=== PATIENT | male | born 1985 | race American Indian/Alaskan Native ===

== ENCOUNTER 2016-08-31 22:40 | Emergency (ER) | payer MEDICARE ==
[2016-08-31 23:15] VITALS: BMI 21.9
[2016-08-31 23:16] VITALS: PULSE 68; TEMP 97.9
[2016-08-31] MEDS ORDERED: TDAP Vaccine 0.5 mL Syr IM ONE (23:46)
[2016-08-31] MEDS ORDERED: Naproxen 550 mg Tab PO STA (23:46)
[2016-08-31] MEDS ORDERED: Tmp-Smz 800 mg-160 mg DS Tab PO STA (23:46)
--- NOTE | 2016-08-31 23:53 | ED PDOC ---
Arrival/HPI - General Chief Complaint: Bite Time Seen by Provider: 08/31/16 23:28 Historian: Patient - History of Present Illness Narrative History of Present Illness (Text): 08/31/16 23:55 Patient presents to the emergency room after he was bitten by his neighbor's dog on the posterior aspect of his left heel prior to arrival. Denies any numbness, decrease in range of motion, active bleeding, or any other injury. Patient has no other complaints. Of note, as per patient the neighbor's dog is up-to-date with rabies vaccination. Past Medical History - Provider Review Nursing Documentation Reviewed: Yes - Tetanus Immunization Tetanus Immunization: Unknown - Cardiac Hx Cardiac Disorders: No - Pulmonary Hx Respiratory Disorders: No - Neurological Hx Neurological Disorder: No Hx Seizures: Yes - HEENT Hx HEENT Disorder: No - Renal Hx Renal Disorder: No - Endocrine/Metabolic Hx Endocrine Disorders: No - Hematological/Oncological Hx Sickle Cell Disease: Yes - Integumentary Hx Dermatological Disorder: Yes Other/Comment: poison geri - Musculoskeletal/Rheumatological Hx Musculoskeletal Disorders: No - Gastrointestinal Hx Gastrointestinal Disorders: No - Genitourinary/Gynecological Hx Genitourinary Disorders: No - Psychiatric Hx Substance Use: No - Anesthesia Hx Anesthesia: No Family/Social History - Physician Review Nursing Documentation Reviewed: Yes Family/Social History: No Known Family HX Smoking Status: Never Smoked Hx Alcohol Use: No Hx Substance Use: No Allergies/Home Meds Allergies/Adverse Reactions: Allergies Penicillins Allergy (Verified 08/31/16 23:25) RASH phenobarbital Allergy (Verified 08/31/16 23:25) RASH phenytoin [From Dilantin] Allergy (Verified 08/31/16 23:25) RASH Home Medications: Home Meds Medication Instructions Recorded Confirmed Carbamazepine [Carbamazepine ER] 200 mg PO BID 08/31/16 08/31/16 Cholecalciferol (Vitamin D3) 1 tab PO DAILY 08/31/16 08/31/16 [Vitamin D3] Famotidine [Pepcid] 20 mg PO BID 08/31/16 08/31/16 Folic Acid [Folic Acid] 1 mg PO DAILY 08/31/16 08/31/16 Hydroxyurea [Hydrea] 500 mg PO DAILY 08/31/16 08/31/16 Lacosamide [Vimpat] 200 mg PO BID 08/31/16 08/31/16 predniSONE [predniSONE Tab] 10 mg PO DAILY 08/31/16 08/31/16 Review of Systems - Review of Systems Constitutional: Normal. absent: Fatigue, Weight Change, Fevers Musculoskeletal: Normal. absent: Arthralgias, Back Pain, Neck Pain Skin: Normal. absent: Rash, Pruritis, Skin Lesions Physical Exam Vital Signs Temp Pulse Resp BP Pulse Ox 08/31/16 23:16 97.9 F 68 17 122/78 97 Temperature: Afebrile Blood Pressure: Normal Pulse: Regular Respiratory Rate: Normal Appearance: Positive for: Well-Appearing, Non-Toxic, Comfortable Pain Distress: None Mental Status: Positive for: Alert and Oriented X 3 - Systems Exam Lower Extremity: Present: Normal Inspection, NORMAL PULSES, Normal ROM, Neurovascularly Intact, Capillary Refill < 2 s, Other (1 cm abrasion to the heel of the L foot). No: Edema, Tenderness, Swelling, Erythema, Deformity Neurological: Present: GCS=15, CN II-XII Intact Skin: Present: Warm, Dry, Normal Color. No: Rashes Psychiatric: Present: Alert, Oriented x 3 Medical Decision Making ED Course and Treatment: 08/31/16 23:51 31 yo M presents to the ER for dog bite to the L heel. Dog is UTD with rabies. Given naprosyn po, bactrim po, flagyl po and tdap IM. Wound cleaned and dressed. Advised to f/u with pmd after 2 days for wound check and to finish antibiotics. Advised to return to the ER at any time for any new or worsening symptoms. Rx provided. - Medication Orders Current Medication Orders: Metronidazole (Flagyl) 500 mg PO STAT STA PRN Reason: Protocol Stop: 08/31/16 23:49 Naproxen (Anaprox Ds) 550 mg PO ONCE STA Stop: 08/31/16 23:47 Tetanus/Reduced Diphtheria/Acell Pertussis (Boostrix Vaccine Inj) 0.5 ml IM .ONCE ONE Stop: 08/31/16 23:47 Trimethoprim/Sulfamethoxazole (Bactrim Ds Tab) 1 tab PO STAT STA PRN Reason: Protocol Stop: 08/31/16 23:47 - PA / MAPPING SPECIALIST / Resident Statement MD/DO has reviewed & agrees with the documentation as recorded. Disposition/Present on Arrival - Present on Arrival Any Indicators Present on Arrival: No History of DVT/PE: No History of Uncontrolled Diabetes: No Urinary Catheter: No History of Decub. Ulcer: No History Surgical Site Infection Following: None - Disposition Have Diagnosis and Disposition been Completed?: Yes Diagnosis: Dog bite of left foot Disposition: HOME/ ROUTINE Disposition Time: 23:49 Patient Plan: Discharge Condition: GOOD Discharge Instructions (ExitCare): Animal Bite (ED) Print Language: GHANAIAN Additional Instructions: Thank you for letting us take care of you today. You were treated for dog bite. The emergency medical care you received today was directed at your acute symptoms. If you were prescribed any medication, please fill it and take as directed. It may take several days for your symptoms to resolve. Return to the Emergency Department if your symptoms worsen, do not improve, or if you have any other problems. Please contact your doctor in 2 days for re-evaluation and follow up. Bring any paperwork you were given at discharge with you along with any medications you are taking to your follow up visit. Our treatment cannot replace ongoing medical care by a primary care provider (PCP) outside of the emergency department. Thank you for allowing the [facility] hospital team to be part of your care today. Prescriptions: Metronidazole [Flagyl] 500 mg PO TID #21 tab Sulfamethoxazole/Trimethoprim [Bactrim DS 800 mg-160 mg] 1 tab PO BID #14 tab Forms: WORK NOTE
[2016-09-01 00:14] VITALS: BP 132/82; RESP 18; O2SAT 98
== END 2016-09-01 00:13 | disposition home or self-care (01) ==
LOC: ED 22:40
DX: S90.872A Other superficial bite of left foot, initial encounter (principal); W54.0XXA Bitten by dog, initial encounter; Z23 Encounter for immunization

== ENCOUNTER 2017-01-17 18:56 | Emergency (ER) | payer MEDICARE ==
[2017-01-17 19:03] VITALS: BMI 24.3
--- NOTE | 2017-01-17 19:28 | ED PDOC ---
Arrival/HPI - General Chief Complaint: Abnormal Skin Integrity Time Seen by Provider: 01/17/17 19:23 Historian: Patient, Parent (mother) - History of Present Illness Narrative History of Present Illness (Text): 01/17/17 19:23 This 31 yo male with pmh seizures, sickle cell anemia, presents to this Emergency department complaining of 3 abscess on her right axilla x 4 days. Denies similar abscess in the past. Denies fever, streaking erythema, sob, cp, abdominal pain, sick contact, or recent travel. Time/Duration: Other (see hpi) Context: Home Past Medical History - Provider Review Nursing Documentation Reviewed: Yes - Infectious Disease Hx of Infectious Diseases: None - Tetanus Immunization Tetanus Immunization: Unknown - Cardiac Hx Cardiac Disorders: No - Pulmonary Hx Respiratory Disorders: No - Neurological Hx Seizures: Yes - HEENT Hx HEENT Disorder: No - Renal Hx Renal Disorder: No - Endocrine/Metabolic Hx Endocrine Disorders: No - Hematological/Oncological Hx Sickle Cell Disease: Yes - Integumentary Hx Dermatological Disorder: Yes Other/Comment: poison geri - Musculoskeletal/Rheumatological Hx Musculoskeletal Disorders: No - Gastrointestinal Hx Gastrointestinal Disorders: No - Genitourinary/Gynecological Hx Genitourinary Disorders: No - Psychiatric Hx Substance Use: No - Surgical History Other/Comment: L chest port - Anesthesia Hx Anesthesia: Yes Hx Anesthesia Reactions: No Hx Malignant Hyperthermia: No Family/Social History - Physician Review Nursing Documentation Reviewed: Yes Family/Social History: Other (noncontributory) Smoking Status: Never Smoked Hx Alcohol Use: No Hx Substance Use: No Allergies/Home Meds Allergies/Adverse Reactions: Allergies Penicillins Allergy (Verified 01/19/17 18:28) RASH phenobarbital Allergy (Verified 01/19/17 18:28) RASH phenytoin [From Dilantin] Allergy (Verified 01/19/17 18:28) RASH Home Medications: Home Meds Medication Instructions Recorded Confirmed Carbamazepine [Carbamazepine ER] 200 mg PO BID 08/31/16 01/19/17 Famotidine [Pepcid] 20 mg PO BID 08/31/16 01/19/17 Folic Acid [Folic Acid] 1 mg PO DAILY 08/31/16 01/19/17 Hydroxyurea [Hydrea] 3 cap PO DAILY 08/31/16 01/19/17 Lacosamide [Vimpat] 200 mg PO BID 08/31/16 01/19/17 predniSONE [predniSONE Tab] 10 mg PO DAILY 08/31/16 01/19/17 Ibuprofen [Motrin Tab] 1 tab PO Q8H PRN 01/17/17 01/19/17 Pregabalin [Lyrica] 1 cap PO BID 01/17/17 01/19/17 Review of Systems - Review of Systems Constitutional: Normal. absent: Fatigue, Weight Change, Fevers, Night Sweats Eyes: Normal ENT: Normal Respiratory: Normal. absent: SOB, Cough Cardiovascular: Normal. absent: Chest Pain, Palpitations Gastrointestinal: Normal. absent: Abdominal Pain, Nausea, Vomiting Genitourinary Male: Normal. absent: Hematuria Musculoskeletal: Normal. absent: Arthralgias, Back Pain, Neck Pain Skin: Abscess (right axilla). absent: Pruritis, Cellulitis Neurological: Normal. absent: Headache, Dizziness, Gait Changes Endocrine: Normal Hemo/Lymphatic: Normal Psychiatric: Normal. absent: Anxiety, Depression, Suicidal Ideation Physical Exam Vital Signs Pulse Resp BP Pulse Ox 01/17/17 20:45 64 17 127/82 100 01/17/17 19:05 60 17 134/70 97 Temperature: Afebrile Blood Pressure: Normal Pulse: Regular Respiratory Rate: Normal Appearance: Positive for: Well-Appearing, Non-Toxic, Comfortable Pain Distress: None Mental Status: Positive for: Alert and Oriented X 3 - Systems Exam Head: Present: Atraumatic, Normocephalic Pupils: Present: PERRL Extroacular Muscles: Present: EOMI Conjunctiva: Present: Normal Mouth: Present: Moist Mucous Membranes Neck: Present: Normal Range of Motion, Trachea Midline. No: Meningeal Signs, Lymphadenopathy Respiratory/Chest: Present: Clear to Auscultation, Good Air Exchange. No: Respiratory Distress, Accessory Muscle Use, Wheezes, Rales, Rhonchi Cardiovascular: Present: Regular Rate and Rhythm, Normal S1, S2. No: Murmurs Abdomen: No: Tenderness Back: Present: Normal Inspection. No: CVA Tenderness Upper Extremity: Present: Normal ROM, NORMAL PULSES, Neurovascularly Intact, Capillary Refill < 2s, Other ((+) multiple abscess on right axilla. Lef axilla was normal). No: Cyanosis, Edema, Erythema Lower Extremity: Present: Normal Inspection, Normal ROM Neurological: Present: GCS=15, CN II-XII Intact, Speech Normal, Motor Func Grossly Intact, Normal Sensory Function, Normal Cerebellar Funct, Gait Normal, Memory Normal Skin: Present: Warm, Dry, Normal Color, Abscess (see hpi). No: Rashes Psychiatric: Present: Alert, Oriented x 3, Normal Insight, Normal Concentration. No: Suicidal Ideation, Homicidal Ideation Medical Decision Making ED Course and Treatment: Patient came c/o right axilla abscess. Abscess was fluctuance, and I&D was performed. Patient was recommended to keep wound clean and dry for 2 days, antibiotic was ordered. Patient was recommended to return to ED in 48 hours. Patient agreed with plan. Re-evaluation Time: 20:30 Reassessment Condition: Re-examined, Improved - Lab Interpretations Microbiology Results: Microbiology Results 01/17/17 20:00 Abscess - Axilla Gram Stain - Final 01/17/17 20:00 Abscess - Axilla Wound Culture - Final Methicillin Resistant S Aureus - Medication Orders Current Medication Orders: Discontinued Medications Trimethoprim/Sulfamethoxazole (Bactrim Ds Tab) 1 tab PO STAT STA PRN Reason: Protocol Stop: 01/17/17 20:16 Last Admin: 01/17/17 20:26 Dose: 1 tab - Procedure PROCEDURE NOTE (Text): PROCEDURE: INCISION & DRAINAGE Performed by the emergency provider Indication: Abscess Location: right axilla Preparation: The area was prepped and draped in the usual sterile fashion and was cleansed with betadine. Local infiltration of Lidocaine 1% with Epi was used for anesthesia. Procedure: The most fluctuant portion of the abscess was incised with a #11 scalpel. Approximately 4 mL of purulent material was obtained. The abscess was packed with 1/2 inch packing. A dressing was applied by nv. Post-Procedure: On exam the abscess is notably less fluctuant. The patient tolerated the procedure well, and there were no complications. Cultured: YES Disposition/Present on Arrival - Present on Arrival Any Indicators Present on Arrival: No History of DVT/PE: No History of Uncontrolled Diabetes: No Urinary Catheter: No History of Decub. Ulcer: No History Surgical Site Infection Following: None - Disposition Have Diagnosis and Disposition been Completed?: Yes Diagnosis: Cutaneous abscess of axilla Disposition: HOME/ ROUTINE Disposition Time: 20:33 Patient Plan: Discharge Condition: GOOD Discharge Instructions (ExitCare): Abscess Incision and Drainage (ED) Additional Instructions: Call private doctor for follow up visit in 1-2 days. return to emergency room for wound check and packing removal in 2 days. keep wound clean and dry for 2 days, then clean wound daily with soap and water only. take medication as instructed. return to emergency sooner if wound becomes painful, bleeding or discharge, or fever Prescriptions: Sulfamethoxazole/Trimethoprim [Bactrim DS 800 mg-160 mg] 1 tab PO BID #20 tab Referrals: Rashida Albert, [Non-Staff] - Follow up with primary Forms: [employer] ([place]), WORK NOTE
[2017-01-17] MEDS ORDERED: LIDOCAIN/EPI 1-0.001% 10ML INJ SOL IJ ONE (19:29)
[2017-01-17] MEDS ORDERED: Tmp-Smz 800 mg-160 mg DS Tab PO STA (20:15)
[2017-01-17 20:46] VITALS: BP 127/82; PULSE 64; RESP 17; O2SAT 100
--- NOTE | 2017-01-20 11:32 | ED PDOC ---
ED Additional Note - Physician Additional Note Physician Additional Note: received call of + wound culture showing MRSA. Sensitive to bactrim. pt is currently on bactrim.
== END 2017-01-17 20:48 | disposition home or self-care (01) ==
LOC: ED 18:56
DX: L02.411 Cutaneous abscess of right axilla (principal); Z88.0 Allergy status to penicillin

== ENCOUNTER 2017-01-19 17:36 | Emergency (ER) | payer MEDICARE ==
[2017-01-19 17:36] VITALS: BMI 24.3
[2017-01-19 18:31] VITALS: TEMP 97.9
--- NOTE | 2017-01-19 19:15 | ED PDOC ---
Arrival/HPI - General Chief Complaint: Wound Check Time Seen by Provider: 01/19/17 19:14 Historian: Patient - History of Present Illness Narrative History of Present Illness (Text): 01/19/17 19:17 31 y/o male, s/p I&D of the rt. axillary abscess about 2 days ago and here for the wound check and dressing change. Pt. stated that he feels much better and taking his antibiotics as prescribed, no night sweat, no rash, no palpitation, no numbness or tingling, no change in vision, no other medical or psychological complaints. Past Medical History - Provider Review Nursing Documentation Reviewed: Yes - Infectious Disease Hx of Infectious Diseases: None - Tetanus Immunization Tetanus Immunization: Unknown - Cardiac Hx Cardiac Disorders: No - Pulmonary Hx Respiratory Disorders: No - Neurological Hx Neurological Disorder: Yes Hx Seizures: Yes - HEENT Hx HEENT Disorder: No - Renal Hx Renal Disorder: No - Endocrine/Metabolic Hx Endocrine Disorders: No - Hematological/Oncological Hx Sickle Cell Disease: Yes - Integumentary Hx Dermatological Disorder: Yes Other/Comment: poison geri - Musculoskeletal/Rheumatological Hx Musculoskeletal Disorders: No - Gastrointestinal Hx Gastrointestinal Disorders: No - Genitourinary/Gynecological Hx Genitourinary Disorders: No - Psychiatric Hx Substance Use: No - Surgical History Other/Comment: L chest port - Anesthesia Hx Anesthesia: Yes Hx Anesthesia Reactions: No Hx Malignant Hyperthermia: No Family/Social History - Physician Review Nursing Documentation Reviewed: Yes Family/Social History: Unknown Family HX Smoking Status: Never Smoked Hx Alcohol Use: No Hx Substance Use: No Allergies/Home Meds Allergies/Adverse Reactions: Allergies Penicillins Allergy (Verified 01/19/17 18:28) RASH phenobarbital Allergy (Verified 01/19/17 18:28) RASH phenytoin [From Dilantin] Allergy (Verified 01/19/17 18:28) RASH Home Medications: Home Meds Medication Instructions Recorded Confirmed Carbamazepine [Carbamazepine ER] 200 mg PO BID 08/31/16 01/19/17 Famotidine [Pepcid] 20 mg PO BID 08/31/16 01/19/17 Folic Acid [Folic Acid] 1 mg PO DAILY 08/31/16 01/19/17 Hydroxyurea [Hydrea] 3 cap PO DAILY 08/31/16 01/19/17 Lacosamide [Vimpat] 200 mg PO BID 08/31/16 01/19/17 predniSONE [predniSONE Tab] 10 mg PO DAILY 08/31/16 01/19/17 Ibuprofen [Motrin Tab] 1 tab PO Q8H PRN 01/17/17 01/19/17 Pregabalin [Lyrica] 1 cap PO BID 01/17/17 01/19/17 Review of Systems - Review of Systems Constitutional: absent: Fatigue, Fevers Eyes: absent: Vision Changes ENT: absent: Hearing Changes Respiratory: absent: SOB, Cough Cardiovascular: absent: Chest Pain Gastrointestinal: absent: Abdominal Pain, Nausea, Vomiting Skin: Abscess. absent: Rash, Pruritis, Skin Lesions, Laceration, Ulcer, Cellulitis Neurological: absent: Headache, Dizziness, Focal Weakness Physical Exam Vital Signs Reviewed: Yes Vital Signs Temp Pulse Resp BP Pulse Ox 01/19/17 18:28 97.9 F 81 18 124/81 98 Temperature: Afebrile Blood Pressure: Normal Pulse: Regular Respiratory Rate: Normal Appearance: Positive for: Well-Appearing, Non-Toxic, Comfortable Pain Distress: Mild Mental Status: Positive for: Alert and Oriented X 3 - Systems Exam Head: Present: Atraumatic, Normocephalic Pupils: Present: PERRL Extroacular Muscles: Present: EOMI Conjunctiva: Present: Normal Mouth: Present: Moist Mucous Membranes Neck: Present: Normal Range of Motion Respiratory/Chest: Present: Clear to Auscultation, Good Air Exchange. No: Respiratory Distress, Accessory Muscle Use Cardiovascular: Present: Regular Rate and Rhythm, Normal S1, S2. No: Murmurs Abdomen: Present: Normal Bowel Sounds. No: Tenderness, Distention, Peritoneal Signs Back: Present: Normal Inspection Upper Extremity: Present: Normal Inspection. No: Cyanosis, Edema Lower Extremity: Present: Normal Inspection. No: Edema Neurological: Present: GCS=15, Speech Normal, Motor Func Grossly Intact, Gait Normal, Memory Normal Skin: Present: Warm, Dry, Rashes (Rt. axillary region visible 3 drainined I&D abscess with no oozing/discharge with all the packing fall out, no cellulitis or streaking, no ulcers, FROM without limitation, sensation intact, motor 5/5, + radial pulse, capillary refill< 2 seconds, neurovascular intact. ), Normal Color Psychiatric: Present: Alert, Oriented x 3, Normal Insight, Normal Concentration Medical Decision Making ED Course and Treatment: 01/19/17 19:23 -wound clean with saline and betadine, bactracin and gauze dressing. -Discharge home with education on follow up with your own pmd and general surgeon within 2 days, continue the antibiotic, return to the ER for any new or worsening signs or symptoms. - PA / INSTANT POTATO PROCESSOR / Resident Statement MD/DO has reviewed & agrees with the documentation as recorded. Disposition/Present on Arrival - Present on Arrival Any Indicators Present on Arrival: No History of DVT/PE: No History of Uncontrolled Diabetes: No Urinary Catheter: No History of Decub. Ulcer: No History Surgical Site Infection Following: None - Disposition Have Diagnosis and Disposition been Completed?: Yes Diagnosis: Visit for wound check Disposition: HOME/ ROUTINE Disposition Time: 19:24 Patient Plan: Discharge Condition: GOOD Additional Instructions: -Discharge home with education on follow up with your own pmd and general surgeon within 2 days, continue the antibiotic, return to the ER for any new or worsening signs or symptoms. Referrals: Luis Eduardo Lobato MD [Primary Care Provider] - Follow up with primary Jaswinder Manriquez MD [Medical Doctor] - Follow up with primary Forms: WORK NOTE
[2017-01-19 19:31] VITALS: BP 125/78; PULSE 76; RESP 17; O2SAT 100
== END 2017-01-19 19:35 | disposition home or self-care (01) ==
LOC: ED 17:36
DX: Z48.00 Encounter for change or removal of nonsurgical wound dressing (principal)

== ENCOUNTER 2017-04-07 17:47 | Emergency (ER) | payer MEDICARE ==
[2017-04-07 17:47] VITALS: BMI 24.3
[2017-04-07 19:18] VITALS: RESP 18; TEMP 97.8
[2017-04-07] MEDS ORDERED: Lidocaine 1%/Epinephrine 1:100000 30 ml vial IJ STA (20:01)
--- NOTE | 2017-04-07 20:39 | ED PDOC ---
Arrival/HPI - General Chief Complaint: Abnormal Skin Integrity Time Seen by Provider: 04/07/17 18:07 Historian: Patient, Parent EM Caveat: Acuity of Condition - History of Present Illness Narrative History of Present Illness (Text): 04/07/17 20:33 Pt is a 31 yo M c/o boils on his chest and left axilla. Pt was here in January for a right axillary boil that was treated via I&D and packed. Pt reports he continues to get infected boils, most that he will express on his own but states that they are very sore to touch. He reports the right chest boil became infected and pustular material was squeezed out today. The left axilla has a boil that may also be infected. Pt has PMH of sicke cell disease and seizures for which he takes medication daily. PMD is Dr. Blunt. Time/Duration: Prior to Arrival Symptom Onset: Sudden, Gradual Symptom Course: Unchanged Quality: Aching, Pressure Severity Level: 2, Mild Activities at Onset: Rest Context: Home Past Medical History - Provider Review Nursing Documentation Reviewed: Yes - Travel History Have you recently traveled outside [place] w/in the past 3 mons?: No - Infectious Disease Hx of Infectious Diseases: None - Tetanus Immunization Tetanus Immunization: Unknown - Cardiac Hx Cardiac Disorders: No - Pulmonary Hx Respiratory Disorders: No - Neurological Hx Seizures: Yes - HEENT Hx HEENT Disorder: No - Renal Hx Renal Disorder: No - Endocrine/Metabolic Hx Endocrine Disorders: No - Hematological/Oncological Hx Blood Disorders: Yes Hx Sickle Cell Disease: Yes - Integumentary Hx Dermatological Disorder: Yes Other/Comment: poison geri - Musculoskeletal/Rheumatological Hx Musculoskeletal Disorders: No - Gastrointestinal Hx Gastrointestinal Disorders: No - Genitourinary/Gynecological Hx Genitourinary Disorders: No - Psychiatric Hx Psychophysiologic Disorder: No Hx Substance Use: No - Surgical History Hx Orthopedic Surgery: Yes (right foot) Other/Comment: L chest port - Anesthesia Hx Anesthesia: Yes Hx Anesthesia Reactions: No Hx Malignant Hyperthermia: No Family/Social History - Physician Review Nursing Documentation Reviewed: Yes Family/Social History: Unknown Family HX Smoking Status: Never Smoked Hx Alcohol Use: No Hx Substance Use: No Allergies/Home Meds Allergies/Adverse Reactions: Allergies Penicillins Allergy (Verified 04/07/17 19:13) RASH phenobarbital Allergy (Verified 04/07/17 19:13) RASH phenytoin [From Dilantin] Allergy (Verified 04/07/17 19:13) RASH Home Medications: Home Meds Medication Instructions Recorded Confirmed Carbamazepine [Carbamazepine ER] 200 mg PO BID 08/31/16 04/07/17 Famotidine [Pepcid] 20 mg PO BID 08/31/16 04/07/17 Folic Acid [Folic Acid] 1 mg PO DAILY 08/31/16 04/07/17 Hydroxyurea [Hydrea] 3 cap PO DAILY 08/31/16 04/07/17 Lacosamide [Vimpat] 200 mg PO BID 08/31/16 04/07/17 predniSONE [predniSONE Tab] 10 mg PO DAILY 08/31/16 04/07/17 Ibuprofen [Motrin Tab] 1 tab PO Q8H PRN 01/17/17 04/07/17 Pregabalin [Lyrica] 1 cap PO BID 01/17/17 04/07/17 Review of Systems - Review of Systems Constitutional: Normal Eyes: Normal ENT: Normal Respiratory: Normal Cardiovascular: Normal Gastrointestinal: Normal Genitourinary Male: Normal Musculoskeletal: Normal Skin: Abscess (right side of chest and left axilla ) Neurological: Normal Endocrine: Normal Hemo/Lymphatic: Normal Psychiatric: Normal Physical Exam Vital Signs Reviewed: Yes Vital Signs Temp Pulse Resp BP Pulse Ox 04/07/17 22:50 68 18 119/75 99 04/07/17 21:00 72 18 118/70 99 04/07/17 19:14 97.8 F 69 18 116/79 96 Temperature: Afebrile Blood Pressure: Normal Pulse: Regular Respiratory Rate: Normal Appearance: Positive for: Well-Appearing, Non-Toxic, Comfortable Pain Distress: None Mental Status: Positive for: Alert and Oriented X 3 - Systems Exam Head: Present: Atraumatic, Normocephalic Pupils: Present: PERRL Extroacular Muscles: Present: EOMI Conjunctiva: Present: Normal Mouth: Present: Moist Mucous Membranes Neck: Present: Normal Range of Motion Respiratory/Chest: Present: Clear to Auscultation, Good Air Exchange. No: Respiratory Distress, Accessory Muscle Use Cardiovascular: Present: Regular Rate and Rhythm, Normal S1, S2. No: Murmurs Abdomen: Present: Normal Bowel Sounds. No: Tenderness, Distention, Peritoneal Signs Back: Present: Normal Inspection Upper Extremity: Present: Normal Inspection. No: Cyanosis, Edema Lower Extremity: Present: Normal Inspection. No: Edema Neurological: Present: GCS=15, CN II-XII Intact, Speech Normal Skin: Present: Warm, Dry, Normal Color, Abscess (left axilla and right anterior chest; right chest boil open and purulent ). No: Rashes Psychiatric: Present: Alert, Oriented x 3, Normal Insight, Normal Concentration Medical Decision Making ED Course and Treatment: 04/07/17 20:42 Impression: Pt is a 31 yo M c/o boils on his chest and left axilla. Plan: I&D, pack and dress boils dispo home on Bactrim DS q12 x 10 pt needs to f/u w PMD and specialist to ascertain chronic infections Progress: Open abscess on right side of chest was expressed, irrigated, packed and dressed. Cx of wound was taken but may require new culture as possible contamination Pt VSS and dispo home; return in 2 days Reassessment Condition: Improved - Medication Orders Current Medication Orders: Discontinued Medications Lidocaine/Epinephrine (Lidocaine 1%/Epinephrine 1:470189 30 Ml) 10 ml IJ STAT STA Stop: 04/07/17 20:02 - Procedure PROCEDURE NOTE (Text): 04/08/17 13:38 Verbal consent was given by pt for abscess drainage and packing Right chest abscess was prepped and draped; 4cc xylocaine infiltrated the site abscess was expressed producing 2cc purulent matter, wound culture was obtained site was irrigated w sterile water 1/4 in iodoform was packed into wound, and dry dressing to cover Pt tolerated procedure well. Disposition/Present on Arrival - Present on Arrival Any Indicators Present on Arrival: Yes History of DVT/PE: No History of Uncontrolled Diabetes: No Urinary Catheter: No History of Decub. Ulcer: No History Surgical Site Infection Following: None - Disposition Have Diagnosis and Disposition been Completed?: Yes Diagnosis: Abscess Disposition: HOME/ ROUTINE Disposition Time: 22:09 Patient Plan: Discharge Condition: STABLE Discharge Instructions (ExitCare): Sulfamethoxazole/Trimethoprim (By mouth), Wound Infection (ED), Abscess (ED) Additional Instructions: PLease return to the emergency department in 2 days for a wound check. Take the medication that you have been prescribed, as directed and continue taking it to completion of 10 days. We advise that you follow up with your doctor in the next 5 days. If you develop sudden fever or shortness of breath, chest pain, return to the ER for evaluation. Prescriptions: Sulfamethoxazole/Trimethoprim [Bactrim DS 800 mg-160 mg] 1 tab PO BID 10 Days # 20 tab Referrals: PCP,NO [Primary Care Provider] - Follow up with primary Forms: [employer] (Bulgarian)
[2017-04-07 22:40] VITALS: O2SAT 99
[2017-04-07 23:18] VITALS: BP 119/75; PULSE 68
== END 2017-04-07 23:18 | disposition home or self-care (01) ==
LOC: ED 17:47
DX: L02.213 Cutaneous abscess of chest wall (principal)

== ENCOUNTER 2017-04-09 13:27 | Emergency (ER) | payer MEDICARE ==
[2017-04-09 13:28] VITALS: BMI 24.3
[2017-04-09 14:10] VITALS: TEMP 98.3; O2SAT 98
[2017-04-09] MEDS ORDERED: Lidocaine 1% Inj (20ml) IJ STA (14:41)
--- NOTE | 2017-04-09 15:10 | ED PDOC ---
Arrival/HPI - General Historian: Patient, Parent - General Chief Complaint: Wound Check Time Seen by Provider: 04/09/17 14:19 - History of Present Illness Narrative History of Present Illness (Text): 04/09/17 15:11 Pt is a 31 yo M presents for wound check s/p drainage and packing 2 days ago. . Pt reports he continues to have discharge from the packed site but no pain on palpation. The left axilla has a boil that is painful as well. Pt has PMH of sickle cell disease and seizures for which he takes medication daily. PMD is Dr. Blunt. (Jesusita Medina) Past Medical History - Provider Review Nursing Documentation Reviewed: Yes - Travel History Have you recently traveled outside [place] w/in the past 3 mons?: No - Infectious Disease Hx of Infectious Diseases: None - Tetanus Immunization Tetanus Immunization: Unknown - Cardiac Hx Cardiac Disorders: No - Pulmonary Hx Respiratory Disorders: No - Neurological Hx Seizures: Yes - HEENT Hx HEENT Disorder: No - Renal Hx Renal Disorder: No - Endocrine/Metabolic Hx Endocrine Disorders: No - Hematological/Oncological Hx Blood Disorders: Yes Hx Sickle Cell Disease: Yes - Integumentary Hx Dermatological Disorder: Yes Other/Comment: poison geri - Musculoskeletal/Rheumatological Hx Musculoskeletal Disorders: No - Gastrointestinal Hx Gastrointestinal Disorders: No - Genitourinary/Gynecological Hx Genitourinary Disorders: No - Psychiatric Hx Psychophysiologic Disorder: No Hx Substance Use: No - Surgical History Hx Orthopedic Surgery: Yes (right foot) Other/Comment: L chest port - Anesthesia Hx Anesthesia: Yes Hx Anesthesia Reactions: No Hx Malignant Hyperthermia: No Family/Social History - Physician Review Nursing Documentation Reviewed: Yes Family/Social History: Unknown Family HX Smoking Status: Never Smoked Hx Alcohol Use: No Hx Substance Use: No Allergies/Home Meds Allergies/Adverse Reactions: Allergies Penicillins Allergy (Verified 04/09/17 14:10) RASH phenobarbital Allergy (Verified 04/09/17 14:10) RASH phenytoin [From Dilantin] Allergy (Verified 04/09/17 14:10) RASH Home Medications: Home Meds Medication Instructions Recorded Confirmed Carbamazepine [Carbamazepine ER] 200 mg PO BID 08/31/16 04/07/17 Famotidine [Pepcid] 20 mg PO BID 08/31/16 04/07/17 Folic Acid [Folic Acid] 1 mg PO DAILY 08/31/16 04/07/17 Hydroxyurea [Hydrea] 3 cap PO DAILY 08/31/16 04/07/17 Lacosamide [Vimpat] 200 mg PO BID 08/31/16 04/07/17 predniSONE [predniSONE Tab] 10 mg PO DAILY 08/31/16 04/07/17 Ibuprofen [Motrin Tab] 1 tab PO Q8H PRN 01/17/17 04/07/17 Pregabalin [Lyrica] 1 cap PO BID 01/17/17 04/07/17 Review of Systems - Physician Review All systems were reviewed & negative as marked: Yes - Review of Systems Constitutional: Normal Eyes: Normal ENT: Normal Respiratory: Normal Cardiovascular: Normal Gastrointestinal: Normal Genitourinary Male: Normal Musculoskeletal: Normal Skin: Normal, Abscess (right chest treated boil) Neurological: Normal Endocrine: Normal Hemo/Lymphatic: Normal Psychiatric: Normal Physical Exam Temperature: Afebrile Blood Pressure: Normal Pulse: Regular Respiratory Rate: Normal Appearance: Positive for: Well-Appearing, Non-Toxic, Comfortable Pain Distress: None Mental Status: Positive for: Alert and Oriented X 3 - Systems Exam Head: Present: Atraumatic, Normocephalic Pupils: Present: PERRL Extroacular Muscles: Present: EOMI Conjunctiva: Present: Normal Mouth: Present: Moist Mucous Membranes Neck: Present: Normal Range of Motion Respiratory/Chest: Present: Clear to Auscultation, Good Air Exchange. No: Respiratory Distress, Accessory Muscle Use Cardiovascular: Present: Regular Rate and Rhythm, Normal S1, S2. No: Murmurs Abdomen: Present: Normal Bowel Sounds. No: Tenderness, Distention, Peritoneal Signs Back: Present: Normal Inspection Upper Extremity: Present: Normal Inspection. No: Cyanosis, Edema Lower Extremity: Present: Normal Inspection. No: Edema Neurological: Present: GCS=15, CN II-XII Intact, Speech Normal Skin: Present: Warm, Dry, Normal Color, Abscess (packed and healing right chest abscess; non-erythematous). No: Rashes Psychiatric: Present: Alert, Oriented x 3, Normal Insight, Normal Concentration Vital Signs Temp Pulse Resp BP Pulse Ox 04/09/17 16:15 78 18 123/78 98 04/09/17 14:07 98.3 F 76 18 122/74 98 Medical Decision Making ED Course and Treatment: 04/09/17 15:14 Impression: Pt is a 31 yo M presents for wound check s/p drainage and packing 2 days ago. Plan assess wound, infiltrate wound site with 1% lidocaine irrigate wound and re-pack 2nd culture taken as 1st one may have been contaminated Progress Note 04/09/17 16:05 4cc lidocaine 1% infiltrate the wound packing removed and purulent material swabbed 8cc sterile saline irrigation to wound bacitracin applied, non-adhesive dressing applied with tape Dispo'd home (Jesusita Medina) - Lab Interpretations Microbiology Results: Microbiology Results 04/09/17 17:41 Abscess - Skin Gram Stain - Final - Medication Orders Current Medication Orders: Discontinued Medications Lidocaine HCl (Lidocaine 1% (20ml)) 10 ml IJ STAT STA Stop: 04/09/17 14:42 Disposition/Present on Arrival - Present on Arrival Any Indicators Present on Arrival: Yes History of DVT/PE: No History of Uncontrolled Diabetes: No Urinary Catheter: No History of Decub. Ulcer: No History Surgical Site Infection Following: None - Disposition Have Diagnosis and Disposition been Completed?: Yes Disposition Time: 16:00 Patient Plan: Discharge - Disposition Diagnosis: Wound check, abscess Disposition: HOME/ ROUTINE Condition: STABLE Discharge Instructions (ExitCare): Abscess (ED) Additional Instructions: Please take care to keep your wound clean and dry. You may take the dressing off in a 1-2 days to allow for healing. If you notice any discharge from the wound site, please see your primary doctor. If you develop fever, chills and shortness of breath, return to the ER immediately. Continue taking your medication as prescribed until it is completed. Referrals: Rashida Albert, [Primary Care Provider] - Follow up with primary Forms: [employer] (Occitan)
[2017-04-09 16:31] VITALS: BP 123/78; PULSE 78; RESP 98
== END 2017-04-09 16:20 | disposition home or self-care (01) ==
LOC: ED 13:27
DX: Z51.89 Encounter for other specified aftercare (principal)